=== PATIENT | male | born 1965 | race Caucasian/White ===

== ENCOUNTER 2018-02-18 12:05 | Emergency (ER) | payer SELFPAY ==
[~2018-02-18] VITALS: Ht 195.6 cm; Wt 90.7 kg
[2018-02-18 12:29] VITALS: BP 119/53
[2018-02-18] MEDS ORDERED: IBUPROFEN 800 MG TAB PO ONE (14:15)
== END 2018-02-18 14:44 | disposition home or self-care (01) ==
LOC: ER 12:05
DX: M23.92 Unspecified internal derangement of left knee (principal); M17.12 Unilateral primary osteoarthritis, left knee; Z88.0 Allergy status to penicillin
CPT/HCPCS: 73562

== ENCOUNTER 2018-02-25 16:05 | Emergency (ER) | payer MEDICAID ==
[~2018-02-25] VITALS: Ht 195.6 cm; Wt 90.7 kg
[2018-02-25 16:20] VITALS: BP 118/76
[2018-02-25] MEDS ORDERED: PROMETHAZINE HCL 25 MG/ML 1ML IM ONE (17:15)
[2018-02-25] MEDS ORDERED: MEPERIDINE HCL (50 MG/ML) 1 ML VIAL IM ONE (17:15)
== END 2018-02-25 17:53 | disposition home or self-care (01) ==
LOC: ER 16:10
DX: M54.5 Low back pain (principal); M25.562 Pain in left knee; G89.29 Other chronic pain; Z88.0 Allergy status to penicillin
CPT/HCPCS: 96372; 99284; J2175; J2550